=== PATIENT | female | born 1945 | race Caucasian/White ===

== ENCOUNTER 2022-09-09 16:55 | Inpatient (IN) | payer MEDICARE ==
[~2022-09-09 16:55] MED LIST: Iopamidol-370 76% 500 ML 1 ML ONE
[2022-09-09 17:39] LABS: Hemoglobin 9.8 g/dL (12.0-16.0); Mean Corpuscular HGB CONC 33.5 g/dL (32.0-36.0); Mean Corpuscular Hemoglobin 31.5 pg (27.0-31.0); Mean Corpuscular Volume 94.1 fl (78.0-98.0); Mean Platelet Volume 7.1 fL (7.4-10.4); Platelet Count 116 10x3/uL (130-400); RBC Distribution Width 13.6 % (11.5-14.5); Red Blood Cell (RBC) Count 3.11 mill/uL (4.20-5.40)
[2022-09-09 17:48] LABS: INR-International Normal Ratio 1.1; Prothrombin Time 14.8 sec (12.0-14.7)
[2022-09-09 17:49] LABS: PTT 31.7 sec (22.9-36.1)
[2022-09-09 17:55] LABS: ALT (SGPT) 32 U/L (8-55); AST (SGOT) 49 U/L (5-34); Alkaline Phosphatase 53 U/L (40-110); Anion Gap 14 mmol/L (10-20); BUN (Urea Nitrogen) 16 mg/dL (9.8-20.1); Bilirubin, Total 0.5 mg/dL (0.2-1.2); Calc. Creatinine Clearance 0 mL/min (70-130); Calcium 8.1 mg/dL (7.8-10.44); Carbon Dioxide 27 mmol/L (23-31); Chloride 95 mmol/L (98-107); Estimated GFR 87; Globulin 3.1 g/dL (2.4-3.5); Glucose 128 mg/dL (83-110); Potassium 4.1 mmol/L (3.5-5.1); Protein, Total 6.1 g/dL (5.8-8.1); Sodium 132 mmol/L (136-145)
[2022-09-09 18:02] LABS: Band 25 % (5-11); Lymphocytes 10 % (21-51); MDiff Complete? YES; Monocytes 3 % (0-10); Myelocyte 2 % (0-0); Neutrophil 60 % (42-75); Platelet Morphology Comment Appears Decreased; RBC Morphology Normal
[2022-09-09] MEDS ORDERED: Vancomycin 1.5 GRAM/300 ML BAG 1.5 GM in Premix Bag 1 BAG IVPB SCH (18:15)
[2022-09-09] MEDS ORDERED: Piperacillin/Tazobactam 4.5 GM VIAL ONE (18:46)
[2022-09-09 18:54] LABS: CK (CPK) 24 U/L (29-168); Lipase 54 U/L (8-78)
[2022-09-09 21:59] LABS: Lactic Acid 1.4 mmol/L (0.5-2.2)
[2022-09-09] MEDS ORDERED: Ondansetron ODT 4 MG TAB SL PRN (22:00)
[2022-09-09] MEDS ORDERED: Ondansetron PF 4 MG/2 ML Vial IVP PRN (22:00)
[2022-09-09] MEDS ORDERED: Acetaminophen 325 MG TAB PO PRN (22:00)
[2022-09-09 22:09] LABS: Bilirubin Negative (Negative); Blood, Urine Negative (Negative); Clarity Clear (Clear); Glucose, Urine (Dipstick) Normal (Negative); Ketone, Urine Negative (Negative); Leukocyte Negative Leu/uL (Negative); Nitrite Negative (Negative); Protein, Urine (Dipstick) Negative (Neg-Trace); pH, Urine 7.5 (5.0-9.0)
[2022-09-09 22:30] VITALS: BMI 28.0
[2022-09-09 23:22] LABS: Hemoglobin 8.8 g/dL (12.0-16.0)
[2022-09-09] MEDS ORDERED: D5 0.9% NS w/ 20 mEq KCl 1,000 ML IV SCH (23:59)
[2022-09-10 02:59] LABS: Hemoglobin 9.1 g/dL (12.0-16.0)
[2022-09-10 06:18] LABS: Hemoglobin 9.2 g/dL (12.0-16.0)
[2022-09-10] MEDS ORDERED: Morphine 4 MG/ML VIAL ONE (07:58)
[2022-09-10] MEDS ORDERED: FLU VACC QS2022-23(65YR UP)/PF 240 MCG/0.7 ML SYRINGE IM ONE (09:00)
[2022-09-10] MEDS ORDERED: hydrALAZINE 20 MG/ML VIAL SLOW IVP PRN (10:14)
[2022-09-10] MEDS ORDERED: TETANUS, DIPHTHERIA TOX,ADULT (TDVAX) 0.5 ML VIAL IM ONE (10:14)
[2022-09-10 10:37] LABS: Hemoglobin 9.2 g/dL (12.0-16.0)
[2022-09-10] MEDS: traMADol HCl 50 MG TAB PO PRN (12:49)
[2022-09-10] MEDS ORDERED: Ipratropium/Albuterol 3 ML NEB NEB SCH (13:00)
[2022-09-10] MEDS ORDERED: Ipratropium/Albuterol 3 ML NEB NEB PRN (14:40)
[2022-09-10] MEDS: Gabapentin 300 MG CAP PO SCH ×2 (15:47→21:06)
[2022-09-10] MEDS: guaiFENesin ER 600 MG TAB PO SCH (21:05)
[2022-09-10] MEDS: Amoxicillin/Potassium Clav 500 MG TAB PO SCH (21:05)
[2022-09-10] MEDS: Famotidine 20 MG TAB PO SCH (21:06)
[2022-09-10] MEDS: Vit A,C & E/Lutein/Minerals Tablet PO SCH (21:06)
[2022-09-11 06:19] LABS: Hemoglobin 9.2 g/dL (12.0-16.0); Mean Corpuscular HGB CONC 32.5 g/dL (32.0-36.0); Mean Corpuscular Hemoglobin 30.6 pg (27.0-31.0); Mean Corpuscular Volume 94.2 fl (78.0-98.0); Mean Platelet Volume 7.1 fL (7.4-10.4); Platelet Count 136 10x3/uL (130-400); RBC Distribution Width 13.4 % (11.5-14.5); White Blood Cell (WBC) Count 17.2 10x3/uL (4.8-10.8)
[2022-09-11 06:36] LABS: ALT (SGPT) 27 U/L (8-55); AST (SGOT) 37 U/L (5-34); Albumin 2.7 g/dL (3.4-4.8); Alkaline Phosphatase 53 U/L (40-110); Anion Gap 11 mmol/L (10-20); BUN (Urea Nitrogen) 13 mg/dL (9.8-20.1); Bilirubin, Total 0.6 mg/dL (0.2-1.2); Calc. Creatinine Clearance 103 mL/min (70-130); Carbon Dioxide 27 mmol/L (23-31); Chloride 101 mmol/L (98-107); Estimated GFR 94; Globulin 2.9 g/dL (2.4-3.5); Glucose 88 mg/dL (83-110); Potassium 4.3 mmol/L (3.5-5.1); Protein, Total 5.6 g/dL (5.8-8.1); Sodium 135 mmol/L (136-145)
[2022-09-11 06:48] LABS: Band 20 % (5-11); Eosinophils 1 % (0-10); Lymphocytes 9 % (21-51); MDiff Complete? YES; Metamyelocyte 2 % (0-0); Monocytes 4 % (0-10); Myelocyte 6 % (0-0); Neutrophil 58 % (42-75)
[2022-09-11] MEDS ORDERED: Furosemide 10 MG/ML Oral Soln PO SCH (09:00)
[2022-09-11] MEDS ORDERED: Morphine 4 MG/ML VIAL ONE (09:19)
[2022-09-11] MEDS ORDERED: Morphine 4 MG/ML VIAL SLOW IVP SCH (09:22)
[2022-09-11] MEDS: Gabapentin 300 MG CAP PO SCH ×3 (09:31→21:21)
[2022-09-11] MEDS: Amoxicillin/Potassium Clav 500 MG TAB PO SCH ×2 (09:31→21:22)
[2022-09-11] MEDS: Rosuvastatin 5 MG TAB PO SCH (09:31)
[2022-09-11] MEDS: Aspirin 81 mg Enteric Coated Tablet PO SCH (09:32)
[2022-09-11] MEDS: Divalproex Sodium DR 500 MG TAB PO SCH (09:32)
[2022-09-11] MEDS: Spironolactone 25 MG TAB PO SCH (09:32)
[2022-09-11] MEDS: Famotidine 20 MG TAB PO SCH ×2 (09:32→21:22)
[2022-09-11] MEDS: Multivit, Therapeutic 1 TAB PO SCH (09:32)
[2022-09-11] MEDS: guaiFENesin ER 600 MG TAB PO SCH ×2 (09:32→21:21)
[2022-09-11] MEDS: Vit A,C & E/Lutein/Minerals Tablet PO SCH ×2 (09:33→21:20)
[2022-09-11] MEDS: Sertraline 100 MG TAB PO SCH (09:33)
[2022-09-11] MEDS: Montelukast Sodium 10 mg Tablet PO SCH (09:33)
[2022-09-11] MEDS ORDERED: Furosemide 20 MG TAB PO SCH (09:45)
[2022-09-11] MEDS: Bupropion 150 MG SR TAB PO SCH (12:13)
[2022-09-11] MEDS: traMADol HCl 50 MG TAB PO PRN (21:22)
[2022-09-12 08:26] LABS: Hemoglobin 8.7 g/dL (12.0-16.0); Mean Corpuscular HGB CONC 32.4 g/dL (32.0-36.0); Mean Corpuscular Volume 92.4 fl (78.0-98.0); Platelet Count 187 10x3/uL (130-400); RBC Distribution Width 13.6 % (11.5-14.5); Red Blood Cell (RBC) Count 2.92 mill/uL (4.20-5.40); White Blood Cell (WBC) Count 15.4 10x3/uL (4.8-10.8)
[2022-09-12] MEDS: Montelukast Sodium 10 mg Tablet PO SCH (09:16)
[2022-09-12] MEDS: Sertraline 100 MG TAB PO SCH (09:16)
[2022-09-12] MEDS: Bupropion 150 MG SR TAB PO SCH (09:16)
[2022-09-12] MEDS: Amoxicillin/Potassium Clav 500 MG TAB PO SCH ×2 (09:16→21:20)
[2022-09-12] MEDS: Rosuvastatin 5 MG TAB PO SCH (09:16)
[2022-09-12] MEDS: Divalproex Sodium DR 500 MG TAB PO SCH (09:16)
[2022-09-12] MEDS: Famotidine 20 MG TAB PO SCH ×2 (09:16→21:21)
[2022-09-12] MEDS: Aspirin 81 mg Enteric Coated Tablet PO SCH (09:16)
[2022-09-12] MEDS: Furosemide 20 MG TAB PO SCH (09:16)
[2022-09-12] MEDS: guaiFENesin ER 600 MG TAB PO SCH ×2 (09:17→21:21)
[2022-09-12] MEDS: Gabapentin 300 MG CAP PO SCH ×3 (09:17→21:21)
[2022-09-12] MEDS: Multivit, Therapeutic 1 TAB PO SCH (09:17)
[2022-09-12] MEDS: Vit A,C & E/Lutein/Minerals Tablet PO SCH ×2 (09:17→21:20)
[2022-09-12] MEDS: Spironolactone 25 MG TAB PO SCH (09:17)
[2022-09-12 09:19] LABS: Band 18 % (5-11); Eosinophils 2 % (0-10); Lymphocytes 12 % (21-51); MDiff Complete? YES; Metamyelocyte 12 % (0-0); Monocytes 3 % (0-10); Myelocyte 5 % (0-0); Neutrophil 47 % (42-75); Platelet Morphology Comment Appears Adequate; Polychromasia SLIGHT = 2-3 cells (100X) (0-2/hpf); Reactive Lymphocytes 1 % (0-10)
[2022-09-12] MEDS: traMADol HCl 50 MG TAB PO PRN (21:22)
[2022-09-13] MEDS: traMADol HCl 50 MG TAB PO PRN ×2 (03:00→09:12)
[2022-09-13 05:25] LABS: Hemoglobin 9.1 g/dL (12.0-16.0); Mean Corpuscular HGB CONC 31.7 g/dL (32.0-36.0); Mean Corpuscular Hemoglobin 29.6 pg (27.0-31.0); Mean Corpuscular Volume 93.4 fl (78.0-98.0); Mean Platelet Volume 6.8 fL (7.4-10.4); Platelet Count 251 10x3/uL (130-400); RBC Distribution Width 13.9 % (11.5-14.5); Red Blood Cell (RBC) Count 3.06 mill/uL (4.20-5.40); White Blood Cell (WBC) Count 17.1 10x3/uL (4.8-10.8)
[2022-09-13 06:01] LABS: Band 17 % (5-11); Lymphocytes 19 % (21-51); MDiff Complete? YES; Metamyelocyte 2 % (0-0); Monocytes 5 % (0-10); Myelocyte 6 % (0-0); Neutrophil 51 % (42-75)
[2022-09-13] MEDS: Vit A,C & E/Lutein/Minerals Tablet PO SCH (09:05)
[2022-09-13] MEDS: Amoxicillin/Potassium Clav 500 MG TAB PO SCH (09:05)
[2022-09-13] MEDS: Sertraline 100 MG TAB PO SCH (09:05)
[2022-09-13] MEDS: Divalproex Sodium DR 500 MG TAB PO SCH (09:05)
[2022-09-13] MEDS: Spironolactone 25 MG TAB PO SCH (09:05)
[2022-09-13] MEDS: Furosemide 20 MG TAB PO SCH (09:05)
[2022-09-13] MEDS: Rosuvastatin 5 MG TAB PO SCH (09:05)
[2022-09-13] MEDS: Aspirin 81 mg Enteric Coated Tablet PO SCH (09:05)
[2022-09-13] MEDS: guaiFENesin ER 600 MG TAB PO SCH (09:05)
[2022-09-13] MEDS: Famotidine 20 MG TAB PO SCH (09:06)
[2022-09-13] MEDS: Montelukast Sodium 10 mg Tablet PO SCH (09:06)
[2022-09-13] MEDS: Multivit, Therapeutic 1 TAB PO SCH (09:06)
[2022-09-13] MEDS: Gabapentin 300 MG CAP PO SCH ×2 (09:06→14:22)
[2022-09-13] MEDS: Bupropion 150 MG SR TAB PO SCH (09:06)
[2022-09-13 13:28] VITALS: BP 107/74; TEMP 97.6
== END 2022-09-13 14:19 | DRG 863 ==
LOC: ERS 16:55 → SURG A 20:22 → OBSVTOIN 09-10 10:20
PROVIDERS: ADMIT Specialist; ATTEND Specialist
PROC: 0J980ZZ Drainage of Abdomen Subcutaneous Tissue and Fascia, Open Approach (ICD-10-PCS; principal; 2022-09-10)
DX: T81.41XA Infection following a procedure, superficial incisional surgical site, initial encounter (principal); I50.32 Chronic diastolic (congestive) heart failure; K92.1 Melena; K43.6 Other and unspecified ventral hernia with obstruction, without gangrene; K76.82 Hepatic encephalopathy; F32.A Depression, unspecified; K70.30 Alcoholic cirrhosis of liver without ascites; G40.909 Epilepsy, unspecified, not intractable, without status epilepticus; Y83.8 Other surgical procedures as the cause of abnormal reaction of the patient, or of later complication, without mention of misadventure at the time of the procedure; G62.9 Polyneuropathy, unspecified; G31.84 Mild cognitive impairment of uncertain or unknown etiology; Z96.649 Presence of unspecified artificial hip joint; Z98.49 Cataract extraction status, unspecified eye; Z87.891 Personal history of nicotine dependence; Z90.49 Acquired absence of other specified parts of digestive tract; Z79.82 Long term (current) use of aspirin; Z88.4 Allergy status to anesthetic agent; Z88.2 Allergy status to sulfonamides; Z79.899 Other long term (current) drug therapy
CPT/HCPCS: 36415; 71045; 74177; 80048; 80053; 81003; 82550; 83605; 83690; 85014; 85018; 85025; 85610; 85730; 86850; 86900; 86901; 87040; 87086; 93005; 94640; 96365; 96367; 96375; 97139; G0378; J2270; J2543; J3370; J3480; J7620; Q9967